=== PATIENT | female | born 1995 | race Caucasian/White ===

== ENCOUNTER → 2016-12-20 | Outpatient (REF) | payer OTHER ==
[2016-12-20 12:42] LABS: CHOLESTEROL LEVEL 132 MG/DL (<200); FREE T4 1.08 NG/DL (0.76-1.46); TRIGLYCERIDES LEVEL 102 MG/DL (<150)
[2016-12-21 08:43] LABS: THYROID PEROXIDASE ANTIBODY < 28.0 U/ML (<60.0)
== END ==
LOC: M LABDRAW1 11:28
PROVIDERS: ATTEND Physician Assistant Medical
DX: E04.2 Nontoxic multinodular goiter (principal); N97.9 Female infertility, unspecified; L68.0 Hirsutism

== ENCOUNTER → 2017-01-31 | Outpatient (REF) | payer OTHER ==
[2017-01-31 14:03] LABS: FREE T4 1.16 NG/DL (0.76-1.46); HCG, SERUM QUANTITATIVE < 1.0 MIU/ML
== END ==
LOC: M LABDRAW1 13:00
PROVIDERS: ATTEND Physician Assistant Medical
DX: E28.2 Polycystic ovarian syndrome (principal); R94.6 Abnormal results of thyroid function studies

== ENCOUNTER → 2017-07-19 | Outpatient (REF) | payer OTHER | LOC: M LABDRAW1 09:39 | PROVIDERS: ATTEND Internal Medicine Endocrinology, Diabetes & Metabolism | DX: L68.0 Hirsutism (principal) ==

== ENCOUNTER → 2017-07-19 | Outpatient (REF) | payer OTHER ==
[2017-07-19 11:17] LABS: BASO % 0.3 % (0.0-1.0); EOS # 0.1 K/mm3 (0.0-0.50); LARGE UNSTAINED CELL # 0.1 K/mm3 (0.0-0.4); LARGE UNSTAINED CELL % 1.3 % (0.0-4.0); LYMPH # 1.9 K/mm3 (1.5-6.5); LYMPH % 22.5 % (24.0-44.0); MEAN CORPUSCULAR HEMOGLOBIN 29.6 pg (27.0-33.0); MEAN CORPUSCULAR HGB CONC 35.1 g/dl (32.0-36.5); MEAN CORPUSCULAR VOLUME 84.2 fl (80.0-96.0); MONO # 0.4 K/mm3 (0.0-0.8); MONO % 4.2 % (0.0-5.0); NEUTROPHILS # 6.1 K/mm3 (1.8-7.7); NEUTROPHILS % 70.7 % (36.0-66.0); PLATELET COUNT, AUTOMATED 237 k/mm3 (150-450); RED CELL DISTRIBUTION WIDTH 12.9 % (11.5-14.5); WHITE BLOOD COUNT 8.6 K/mm3 (4.0-10.0)
[2017-07-19 11:26] LABS: ALBUMIN 3.7 GM/DL (3.2-5.2); ALBUMIN/GLOBULIN RATIO 1.03 (1.00-1.93); ALKALINE PHOSPHATASE 110 U/L (45-117); ALT/SGPT 21 U/L (12-78); ANION GAP 9 MEQ/L (8-16); AST/SGOT 12 U/L (15-37); BILIRUBIN,TOTAL 0.5 MG/DL (0.2-1.0); BLOOD UREA NITROGEN 11 MG/DL (7-18); CARBON DIOXIDE LEVEL 25 MEQ/L (21-32); CHLORIDE LEVEL 106 MEQ/L (98-107); CREATININE FOR GFR 0.63 MG/DL (0.55-1.02); GLOMERULAR FILTRATION RATE > 60.0 (>60); GLUCOSE, FASTING 89 MG/DL (70-105); SODIUM LEVEL 140 MEQ/L (136-145); TOTAL PROTEIN 7.3 GM/DL (6.4-8.2)
[2017-07-19 12:19] LABS: ERYTHROCYTE SEDIMENTATION RATE 39 mm/hr (0-20)
== END ==
LOC: M LABDRAW1 09:37
PROVIDERS: ATTEND Psychiatry & Neurology Neurology
DX: R51 Headache (principal); L68.0 Hirsutism

== ENCOUNTER 2017-08-08 23:21 | Emergency (ER) | payer OTHER ==
[~2017-08-08] VITALS: Ht 170.2 cm; Wt 109.5 kg
[2017-08-09] MEDS ORDERED: PERCOCET 5MG/325MG TAB PO ONE (01:00)
[2017-08-09 01:48] VITALS: BP 140/87
== END 2017-08-09 02:13 | disposition home or self-care (01) ==
LOC: M ED 23:21
DX: O99.89 Other specified diseases and conditions complicating pregnancy, childbirth and the puerperium (principal); G50.0 Trigeminal neuralgia; K25.9 Gastric ulcer, unspecified as acute or chronic, without hemorrhage or perforation; E28.2 Polycystic ovarian syndrome; Z91.018 Allergy to other foods

== ENCOUNTER 2017-12-25 20:10 | Outpatient (CLI) | payer OTHER | END 2017-12-25 21:55 | disposition home or self-care (01) | LOC: M LDO 20:10 | DX: O36.8130 Decreased fetal movements, third trimester, not applicable or unspecified (principal); Z3A.27 27 weeks gestation of pregnancy | CPT/HCPCS: 59025 ==

== ENCOUNTER 2018-02-15 15:30 | Outpatient (CLI) | payer OTHER | END 2018-02-15 18:40 | disposition home or self-care (01) | LOC: M LDO 15:30 | DX: O26.853 Spotting complicating pregnancy, third trimester (principal); O26.893 Other specified pregnancy related conditions, third trimester; R10.30 Lower abdominal pain, unspecified; Z3A.34 34 weeks gestation of pregnancy | CPT/HCPCS: 59025 ==

== ENCOUNTER 2018-04-02 09:33 | Inpatient (IN) | payer OTHER ==
[2018-04-02] MEDS: LR 1,000 ML IV ×2 (11:13→19:13)
[2018-04-02] MEDS: LACTATED RINGER'S 1000 ML IV (11:13)
[2018-04-02] MEDS ORDERED: LR 1,000 ML IV (11:13)
[2018-04-02] MEDS ORDERED: OXYTOCIN DRIP 30 UNITS in APPROPRIATE DILUENT 1 EA IV (11:15)
[2018-04-02 11:42] LABS: BEDSIDE GLUCOSE 79 MG/DL (70-105)
[2018-04-02 11:57] LABS: HEMATOCRIT 34.3 % (36.0-47.0); HEMOGLOBIN 11.7 g/dl (12.0-15.5); MEAN CORPUSCULAR HEMOGLOBIN 29.7 pg (27.0-33.0); MEAN CORPUSCULAR HGB CONC 34.1 g/dl (32.0-36.5); MEAN CORPUSCULAR VOLUME 87.1 fl (80.0-96.0); PLATELET COUNT, AUTOMATED 183 10^3/uL (150-450); RED BLOOD COUNT 3.94 10^6/uL (4.00-5.40); RED CELL DISTRIBUTION WIDTH 14.3 % (11.5-14.5)
[2018-04-02 12:15] LABS: BEDSIDE GLUCOSE CONFIRMATION 80 MG/DL (LESS THAN 200)
[2018-04-02] MEDS ORDERED: FENTANYL 2MCG/ML ROPIVACAINE 0.2% IN 0.9% NACL 200ML IVBAG As Ordered (20:01)
[2018-04-02] MEDS ORDERED: REFRIGERATOR IV KEYS XX (21:30)
[2018-04-02] MEDS ORDERED: FENTANYL/ROPIVACAINE/NACL BAG 200 ML EPIDURAL (21:30)
[2018-04-02] MEDS ORDERED: ONDANSETRON 4MG/2ML VIAL (J2405) IV (21:30)
[2018-04-02] MEDS ORDERED: ePHEDrine SULFATE 25 MG/5 ML(5MG/ML) SYRINGE IV (21:30)
[2018-04-02] MEDS ORDERED: EPIDURAL COMMENT XX (21:30)
[2018-04-02] MEDS ORDERED: EPIDURAL/PCA KEYS XX (21:30)
[2018-04-02] MEDS ORDERED: diphenhydrAMINE INJ 50MG/ML VIAL (J1200) IV (21:30)
[2018-04-02] MEDS ORDERED: LACTATED RINGER'S 1000 ML IV (21:30)
[2018-04-02] MEDS ORDERED: NALOXONE INJ 0.4 MG/1 ML VIAL (J2310) IV (21:30)
[2018-04-03] MEDS: LR 1,000 ML IV ×2 (03:13→11:13)
[2018-04-03] MEDS: PRENATAL VITAMINS CHEWABLE TABLET PO (09:00)
[2018-04-03 09:39] LABS: CORD GAS ABE V -7.1; CORD GAS HCO3 V 17.3 MEQ/L; CORD GAS O2 SAT V 60.7 %; CORD GAS PH V 7.338 UNITS; CORD GAS PO2 V 27.4 mmHg; CORD GAS SBC V 17.9 MEQ/L; CORD GAS TCO2 V 18.3 MEQ/L
[2018-04-03 09:40] LABS: CORD GAS ABE A -4.9; CORD GAS HCO3 A 23.4 MEQ/L; CORD GAS O2 SAT A 34.4 %; CORD GAS PCO2 A 55.9 mmHg; CORD GAS PO2 A 19.6 mmHg; CORD GAS SBC A 18.9 MEQ/L; CORD GAS TCO2 A 25.1 MEQ/L
[2018-04-03] MEDS ORDERED: ANUSOL HC CREAM 30GM TOP (09:45)
[2018-04-03] MEDS ORDERED: MOM 30ML SUSPENSION UDC PO (09:45)
[2018-04-03] MEDS ORDERED: METHYLERGONOVINE MALEATE 0.2 MG TAB PO (09:45)
[2018-04-03] MEDS ORDERED: DIBUCAINE 1% OINTMENT 30GM TOP (09:45)
[2018-04-03] MEDS: RHOGAM 300 MCG (1500 IU) INJ (J2790) IM (12:30)
[2018-04-03] MEDS: MEASLES,MUMPS,RUBELLA VACCINE INJ (MMR-II) (90707) SC (12:31)
[2018-04-03] MEDS: IBUPROFEN 800 MG TAB PO (13:28)
[2018-04-03] MEDS ORDERED: OXYTOCIN INJ 10 UNITS/ML VIAL (J2590) As Ordered (18:51)
[2018-04-03] MEDS: DOCUSATE SODIUM 100 MG CAP PO (20:32)
[2018-04-03] MEDS: ACETAMINOPHEN 500 MG TAB PO (20:32)
[2018-04-04] MEDS: IBUPROFEN 800 MG TAB PO (05:29)
[2018-04-04 07:04] LABS: HEMATOCRIT 31.3 % (36.0-47.0); HEMOGLOBIN 10.6 g/dl (12.0-15.5); MEAN CORPUSCULAR HEMOGLOBIN 29.5 pg (27.0-33.0); MEAN CORPUSCULAR HGB CONC 33.9 g/dl (32.0-36.5); MEAN CORPUSCULAR VOLUME 87.2 fl (80.0-96.0); PLATELET COUNT, AUTOMATED 170 10^3/uL (150-450); RED BLOOD COUNT 3.59 10^6/uL (4.00-5.40); RED CELL DISTRIBUTION WIDTH 14.6 % (11.5-14.5); WHITE BLOOD COUNT 13.8 10^3/uL (4.0-10.0)
[2018-04-04] MEDS: PRENATAL VITAMINS CHEWABLE TABLET PO (08:47)
[2018-04-04] MEDS: ACETAMINOPHEN 500 MG TAB PO (19:51)
[2018-04-05] MEDS: PRENATAL VITAMINS CHEWABLE TABLET PO (09:27)
[2018-04-05] MEDS: DOCUSATE SODIUM 100 MG CAP PO (10:46)
== END 2018-04-05 11:00 | disposition home or self-care (01) | DRG 775 ==
LOC: M LDI 09:33 → M OBS 04-03 13:08
PROVIDERS: Student in an Organized Health Care Education/Training Program
PROC: 3E033VJ Introduction of Other Hormone into Peripheral Vein, Percutaneous Approach (ICD-10-PCS; 2018-04-02)
PROC: 10E0XZZ Delivery of Products of Conception, External Approach (ICD-10-PCS; principal; 2018-04-03)
PROC: 0KQM0ZZ Repair Perineum Muscle, Open Approach (ICD-10-PCS; 2018-04-03)
PROC: 10907ZC Drainage of Amniotic Fluid, Therapeutic from Products of Conception, Via Natural or Artificial Opening (ICD-10-PCS; 2018-04-03)
DX: O48.0 Post-term pregnancy (principal); O24.420 Gestational diabetes mellitus in childbirth, diet controlled; Z3A.41 41 weeks gestation of pregnancy; O99.214 Obesity complicating childbirth; Z68.37 Body mass index [BMI] 37.0-37.9, adult; O70.1 Second degree perineal laceration during delivery; O36.63X0 Maternal care for excessive fetal growth, third trimester, not applicable or unspecified; Z37.0 Single live birth

== ENCOUNTER 2018-05-05 12:30 | Inpatient (IN) | payer OTHER ==
[2018-05-05] MEDS: MORPHINE 2 MG/ML 1ML SYRINGE (J2270) IV ×3 (12:47→14:16)
[2018-05-05] MEDS: NS 1,000 ML IV ×2 (12:50→13:57)
[2018-05-05] MEDS: ONDANSETRON 4MG/2ML VIAL (J2405) IV ×3 (12:52→23:23)
[2018-05-05 13:01] LABS: BASO % 0.2 % (0.0-1.0); EOS # 0.2 10^3/uL (0.0-0.50); EOS % 1.1 % (0.0-3.0); HEMATOCRIT 42.5 % (36.0-47.0); HEMOGLOBIN 13.9 g/dl (12.0-15.5); IMMATURE GRANULOCYTE % 0.5 % (0-3.0); LYMPH # 3.2 10^3/uL (1.5-6.5); MEAN CORPUSCULAR HEMOGLOBIN 28.7 pg (27.0-33.0); MEAN CORPUSCULAR HGB CONC 32.7 g/dl (32.0-36.5); MEAN CORPUSCULAR VOLUME 87.8 fl (80.0-96.0); MONO # 1.1 10^3/uL (0.0-0.8); NEUTROPHILS # 14.1 10^3/uL (1.8-7.7); NEUTROPHILS % 75.2 % (36.0-66.0); PLATELET COUNT, AUTOMATED 264 10^3/uL (150-450); RED BLOOD COUNT 4.84 10^6/uL (4.00-5.40); RED CELL DISTRIBUTION WIDTH 13.7 % (11.5-14.5); WHITE BLOOD COUNT 18.7 10^3/uL (4.0-10.0)
[2018-05-05 13:19] LABS: LACTIC ACID SEPSIS PROTOCOL 1.4 MMOL/L (0.4-2.0)
[2018-05-05 13:24] LABS: ALBUMIN 3.6 GM/DL (3.2-5.2); ALBUMIN/GLOBULIN RATIO 0.97 (1.00-1.93); ALKALINE PHOSPHATASE 373 U/L (45-117); ALT/SGPT 680 U/L (12-78); ANION GAP 10 MEQ/L (8-16); AST/SGOT 687 U/L (7-37); BILIRUBIN,DIRECT 2.9 MG/DL (0.0-0.2); BILIRUBIN,TOTAL 4.2 MG/DL (0.2-1.0); BLOOD UREA NITROGEN 15 MG/DL (7-18); CALCIUM LEVEL 8.9 MG/DL (8.5-10.1); CARBON DIOXIDE LEVEL 24 MEQ/L (21-32); CHLORIDE LEVEL 110 MEQ/L (98-107); CPK CREATINE PHOSPHOKINASE 43 U/L (26-192); CREATININE FOR GFR 0.88 MG/DL (0.55-1.30); GLOMERULAR FILTRATION RATE > 60.0 (>60); GLUCOSE, FASTING 148 MG/DL (70-100); POTASSIUM SERUM 3.7 MEQ/L (3.5-5.1); SODIUM LEVEL 144 MEQ/L (136-145); TOTAL PROTEIN 7.3 GM/DL (6.4-8.2); TROPONIN I < 0.02 NG/ML (< 0.10)
[2018-05-05 13:25] LABS: CK-MB VALUE MASS < 1.0 NG/ML (<3.6); MB/CK RELATIVE INDEX 2.32 (< OR =4)
[2018-05-05 13:38] LABS: AMYLASE 4850 U/L (25-115); LIPASE 116600 U/L (73-393)
[2018-05-05 13:46] LABS: CONTROL LINE HCG INT CTR LINE PRESENT; HCG, SERUM QUALITATIVE NEGATIVE (NEGATIVE)
[2018-05-05] MEDS ORDERED: ISOVUE-370 76% 100ML VIAL (Q9967) As Ordered (14:22)
[2018-05-05] MEDS: MORPHINE 4 MG/ML 1ML VIAL/SYRINGE (J2270) IV ×8 (15:18→22:07)
[2018-05-05] MEDS: PIPERACILLIN/TAZOBACTAM SOD 3.375 GM in D5W MINI-BAG PLUS 50 ML IV (15:21)
[2018-05-05] MEDS ORDERED: MORPHINE 4 MG/ML 1ML VIAL/SYRINGE (J2270) IV (15:30)
[2018-05-05] MEDS ORDERED: ONDANSETRON 4MG/2ML VIAL (J2405) IV (15:30)
[2018-05-05] MEDS: LR 1,000 ML IV ×3 (16:31→23:24)
[2018-05-05] MEDS: PANTOPRAZOLE 40MG INJ (PROTONIX) (C9113) IV (16:59)
[2018-05-05 20:15] LABS: HEMATOCRIT 44.2 % (36.0-47.0); HEMOGLOBIN 14.7 g/dl (12.0-15.5); MEAN CORPUSCULAR HEMOGLOBIN 28.6 pg (27.0-33.0); MEAN CORPUSCULAR HGB CONC 33.3 g/dl (32.0-36.5); PLATELET COUNT, AUTOMATED 210 10^3/uL (150-450); RED BLOOD COUNT 5.14 10^6/uL (4.00-5.40); RED CELL DISTRIBUTION WIDTH 13.7 % (11.5-14.5); WHITE BLOOD COUNT 11.4 10^3/uL (4.0-10.0)
[2018-05-05 20:42] LABS: ALBUMIN 3.4 GM/DL (3.2-5.2); ALBUMIN/GLOBULIN RATIO 0.94 (1.00-1.93); ALKALINE PHOSPHATASE 374 U/L (45-117); ALT/SGPT 623 U/L (12-78); AST/SGOT 483 U/L (7-37); BILIRUBIN,DIRECT 1.9 MG/DL (0.0-0.2); BILIRUBIN,TOTAL 3.4 MG/DL (0.2-1.0)
[2018-05-05] MEDS: METOCLOPRAMIDE INJ 10MG/2ML VIAL (J2765) IV (20:43)
[2018-05-05] MEDS: HEPARIN SOD (PORCINE) 5000 UNITS/ML VIAL SC (22:07)
[2018-05-05] MEDS: PIPERACILLIN/TAZOBACTAM SOD 4.5 GM in D5W MINI-BAG PLUS 50 ML IV (22:07)
[2018-05-05 23:14] LABS: ALBUMIN 3.3 GM/DL (3.2-5.2); ALBUMIN/GLOBULIN RATIO 0.92 (1.00-1.93); ALKALINE PHOSPHATASE 362 U/L (45-117); ALT/SGPT 592 U/L (12-78); ANION GAP 11 MEQ/L (8-16); AST/SGOT 393 U/L (7-37); BILIRUBIN,TOTAL 2.6 MG/DL (0.2-1.0); BLOOD UREA NITROGEN 12 MG/DL (7-18); CALCIUM LEVEL 8.3 MG/DL (8.5-10.1); CARBON DIOXIDE LEVEL 23 MEQ/L (21-32); CHLORIDE LEVEL 111 MEQ/L (98-107); CREATININE FOR GFR 0.89 MG/DL (0.55-1.30); GLOMERULAR FILTRATION RATE > 60.0 (>60); GLUCOSE, FASTING 143 MG/DL (70-100); POTASSIUM SERUM 4.2 MEQ/L (3.5-5.1); SODIUM LEVEL 145 MEQ/L (136-145); TOTAL PROTEIN 6.9 GM/DL (6.4-8.2)
[2018-05-06] MEDS: MORPHINE 4 MG/ML 1ML VIAL/SYRINGE (J2270) IV ×5 (01:05→12:06)
[2018-05-06] MEDS: LR 1,000 ML IV ×7 (03:13→22:24)
[2018-05-06] MEDS: PIPERACILLIN/TAZOBACTAM SOD 4.5 GM in D5W MINI-BAG PLUS 50 ML IV ×3 (04:15→15:28)
[2018-05-06 05:23] LABS: BASO % 0.1 % (0.0-1.0); HEMOGLOBIN 14.2 g/dl (12.0-15.5); IMMATURE GRANULOCYTE % 0.5 % (0-3.0); LYMPH # 1.2 10^3/uL (1.5-6.5); LYMPH % 7.9 % (24.0-44.0); MEAN CORPUSCULAR HEMOGLOBIN 28.5 pg (27.0-33.0); MEAN CORPUSCULAR VOLUME 86.2 fl (80.0-96.0); MONO # 1.1 10^3/uL (0.0-0.8); MONO % 7.3 % (0.0-5.0); NEUTROPHILS # 12.5 10^3/uL (1.8-7.7); NEUTROPHILS % 84.2 % (36.0-66.0); PLATELET COUNT, AUTOMATED 206 10^3/uL (150-450); RED BLOOD COUNT 4.99 10^6/uL (4.00-5.40); RED CELL DISTRIBUTION WIDTH 13.8 % (11.5-14.5); WHITE BLOOD COUNT 14.8 10^3/uL (4.0-10.0)
[2018-05-06 05:37] LABS: INR 1.16
[2018-05-06 05:38] LABS: PARTIAL THROMBOPLASTIN TIME 29.5 SECONDS (25.4-37.6)
[2018-05-06 05:52] LABS: ALBUMIN 3.1 GM/DL (3.2-5.2); ALBUMIN/GLOBULIN RATIO 0.91 (1.00-1.93); ALKALINE PHOSPHATASE 316 U/L (45-117); ALT/SGPT 459 U/L (12-78); AMYLASE 663 U/L (25-115); ANION GAP 10 MEQ/L (8-16); AST/SGOT 248 U/L (7-37); BILIRUBIN,TOTAL 2.3 MG/DL (0.2-1.0); BLOOD UREA NITROGEN 13 MG/DL (7-18); CALCIUM LEVEL 8.1 MG/DL (8.5-10.1); CARBON DIOXIDE LEVEL 24 MEQ/L (21-32); CHLORIDE LEVEL 110 MEQ/L (98-107); CREATININE FOR GFR 0.88 MG/DL (0.55-1.30); GLOMERULAR FILTRATION RATE > 60.0 (>60); GLUCOSE, FASTING 136 MG/DL (70-100); LIPASE 7436 U/L (73-393); POTASSIUM SERUM 3.9 MEQ/L (3.5-5.1); SODIUM LEVEL 144 MEQ/L (136-145); TOTAL PROTEIN 6.5 GM/DL (6.4-8.2)
[2018-05-06] MEDS: HEPARIN SOD (PORCINE) 5000 UNITS/ML VIAL SC ×3 (06:04→22:24)
[2018-05-06] MEDS: PROMETHAZINE INJ 25 MG/ML VIAL (J2550) IV (09:16)
[2018-05-06] MEDS: PANTOPRAZOLE 40MG INJ (PROTONIX) (C9113) IV (15:28)
[2018-05-06] MEDS ORDERED: PERCOCET 5MG/325MG TAB PO (16:30)
[2018-05-06] MEDS: PERCOCET 5MG/325MG TAB PO ×3 (16:37→21:32)
[2018-05-06 16:49] LABS: HEMATOCRIT 42.7 % (36.0-47.0); MEAN CORPUSCULAR HEMOGLOBIN 28.6 pg (27.0-33.0); MEAN CORPUSCULAR HGB CONC 32.8 g/dl (32.0-36.5); MEAN CORPUSCULAR VOLUME 87.1 fl (80.0-96.0); PLATELET COUNT, AUTOMATED 180 10^3/uL (150-450); RED CELL DISTRIBUTION WIDTH 13.9 % (11.5-14.5); WHITE BLOOD COUNT 17.2 10^3/uL (4.0-10.0)
[2018-05-06 17:00] LABS: ALBUMIN 2.8 GM/DL (3.2-5.2); ALBUMIN/GLOBULIN RATIO 0.82 (1.00-1.93); ALKALINE PHOSPHATASE 264 U/L (45-117); ALT/SGPT 323 U/L (12-78); AST/SGOT 132 U/L (7-37); BILIRUBIN,DIRECT 0.8 MG/DL (0.0-0.2); BILIRUBIN,TOTAL 2.5 MG/DL (0.2-1.0); TOTAL PROTEIN 6.2 GM/DL (6.4-8.2)
[2018-05-06] MEDS ORDERED: MEROPENEM INJ 2 GM in NS 100 ML IV (18:45)
[2018-05-06] MEDS: LACTATED RINGER'S 1000 ML IV (19:52)
[2018-05-06] MEDS: MEROPENEM INJ 1 GM in APPROPRIATE DILUENT 1 EA IV ×2 (20:41→21:29)
[2018-05-07] MEDS: PERCOCET 5MG/325MG TAB PO ×2 (02:43→09:59)
[2018-05-07] MEDS: MEROPENEM INJ 1 GM in APPROPRIATE DILUENT 1 EA IV ×6 (04:22→21:31)
[2018-05-07] MEDS: LR 1,000 ML IV (05:11)
[2018-05-07] MEDS: MORPHINE 4 MG/ML 1ML VIAL/SYRINGE (J2270) IV ×4 (05:12→10:53)
[2018-05-07 07:07] LABS: BASO % 0.2 % (0.0-1.0); EOS % 0.1 % (0.0-3.0); HEMATOCRIT 38.9 % (36.0-47.0); HEMOGLOBIN 12.9 g/dl (12.0-15.5); IMMATURE GRANULOCYTE % 0.7 % (0-3.0); LYMPH # 1.5 10^3/uL (1.5-6.5); LYMPH % 7.6 % (24.0-44.0); MEAN CORPUSCULAR HEMOGLOBIN 28.7 pg (27.0-33.0); MEAN CORPUSCULAR HGB CONC 33.2 g/dl (32.0-36.5); MEAN CORPUSCULAR VOLUME 86.4 fl (80.0-96.0); MONO # 1.1 10^3/uL (0.0-0.8); MONO % 5.9 % (0.0-5.0); NEUTROPHILS # 16.4 10^3/uL (1.8-7.7); NEUTROPHILS % 85.5 % (36.0-66.0); PLATELET COUNT, AUTOMATED 156 10^3/uL (150-450); RED CELL DISTRIBUTION WIDTH 13.9 % (11.5-14.5); WHITE BLOOD COUNT 19.1 10^3/uL (4.0-10.0)
[2018-05-07 07:27] LABS: ALBUMIN 2.4 GM/DL (3.2-5.2); ALBUMIN/GLOBULIN RATIO 0.73 (1.00-1.93); ALKALINE PHOSPHATASE 196 U/L (45-117); ALT/SGPT 214 U/L (12-78); ANION GAP 8 MEQ/L (8-16); AST/SGOT 74 U/L (7-37); BILIRUBIN,DIRECT 0.6 MG/DL (0.0-0.2); BILIRUBIN,TOTAL 1.8 MG/DL (0.2-1.0); BLOOD UREA NITROGEN 9 MG/DL (7-18); CALCIUM LEVEL 7.7 MG/DL (8.5-10.1); CARBON DIOXIDE LEVEL 27 MEQ/L (21-32); CHLORIDE LEVEL 104 MEQ/L (98-107); CREATININE FOR GFR 0.67 MG/DL (0.55-1.30); GLOMERULAR FILTRATION RATE > 60.0 (>60); GLUCOSE, FASTING 116 MG/DL (70-100); POTASSIUM SERUM 3.6 MEQ/L (3.5-5.1); SODIUM LEVEL 139 MEQ/L (136-145); TOTAL PROTEIN 5.7 GM/DL (6.4-8.2)
[2018-05-07] MEDS: HEPARIN SOD (PORCINE) 5000 UNITS/ML VIAL SC ×3 (07:32→21:00)
[2018-05-07 08:38] LABS: LIPASE 3643 U/L (73-393)
[2018-05-07] MEDS: PROMETHAZINE INJ 25 MG/ML VIAL (J2550) IV (08:53)
[2018-05-07] MEDS ORDERED: ISOVUE-370 76% 100ML VIAL (Q9967) As Ordered (09:14)
[2018-05-07] MEDS: NS 1,000 ML IV ×3 (09:55→19:24)
[2018-05-07] MEDS ORDERED: NS 1,000 ML IV (10:14)
[2018-05-07] MEDS ORDERED: NALOXONE INJ 0.4 MG/1 ML VIAL (J2310) IV (10:15)
[2018-05-07] MEDS ORDERED: diphenhydrAMINE INJ 50MG/ML VIAL (J1200) IV (10:15)
[2018-05-07] MEDS ORDERED: NALBUPHINE HCL 10 MG/ML AMP (J2300) IV (10:15)
[2018-05-07] MEDS ORDERED: EPIDURAL/PCA KEYS XX (10:15)
[2018-05-07 10:50] LABS: HEPATITIS B SURFACE ANTIBODY NEGATIVE (POSITIVE)
[2018-05-07 10:54] LABS: HEPATITIS B SURFACE ANTIGEN NEGATIVE (NEGATIVE)
[2018-05-07] MEDS: ONDANSETRON 4MG/2ML VIAL (J2405) IV (11:11)
[2018-05-07] MEDS: MORPHINE 1MG/ML IN 0.9% NACL 100ML IV BAG IV (11:12)
[2018-05-07] MEDS: ACETAMINOPHEN TAB 650MG DOSE (2X325MG) PO ×2 (11:12→20:59)
[2018-05-07 11:20] LABS: HEPATITIS C VIRUS ABY INDEX 0.1 INDEX (<0.8)
[2018-05-07 11:21] LABS: HEPATITIS B CORE ANTIBODY IGM NEGATIVE (NEGATIVE)
[2018-05-07 11:22] LABS: HEPATITIS A ANTIBODY IGM NEGATIVE (NEGATIVE)
[2018-05-07] MEDS ORDERED: LIDOCAINE 1% MDV 20ML VIAL As Ordered (13:46)
[2018-05-07] MEDS: PANTOPRAZOLE 40MG INJ (PROTONIX) (C9113) IV (16:26)
[2018-05-08] MEDS: NS 1,000 ML IV ×8 (00:15→23:30)
[2018-05-08] MEDS: MEROPENEM INJ 1 GM in APPROPRIATE DILUENT 1 EA IV ×6 (03:46→21:07)
[2018-05-08] MEDS: ACETAMINOPHEN TAB 650MG DOSE (2X325MG) PO ×3 (03:47→23:33)
[2018-05-08 05:20] LABS: BASO % 0.2 % (0.0-1.0); EOS % 0.3 % (0.0-3.0); HEMATOCRIT 34.4 % (36.0-47.0); HEMOGLOBIN 11.4 g/dl (12.0-15.5); LYMPH # 1.3 10^3/uL (1.5-6.5); LYMPH % 8.5 % (24.0-44.0); MEAN CORPUSCULAR HEMOGLOBIN 29.2 pg (27.0-33.0); MEAN CORPUSCULAR HGB CONC 33.1 g/dl (32.0-36.5); MONO # 1.2 10^3/uL (0.0-0.8); MONO % 7.4 % (0.0-5.0); NEUTROPHILS # 12.9 10^3/uL (1.8-7.7); NEUTROPHILS % 82.6 % (36.0-66.0); PLATELET COUNT, AUTOMATED 130 10^3/uL (150-450); RED BLOOD COUNT 3.91 10^6/uL (4.00-5.40); RED CELL DISTRIBUTION WIDTH 14.1 % (11.5-14.5); WHITE BLOOD COUNT 15.6 10^3/uL (4.0-10.0)
[2018-05-08 05:41] LABS: ALBUMIN/GLOBULIN RATIO 0.61 (1.00-1.93); ALKALINE PHOSPHATASE 131 U/L (45-117); ALT/SGPT 120 U/L (12-78); ANION GAP 7 MEQ/L (8-16); AST/SGOT 41 U/L (7-37); BILIRUBIN,DIRECT 0.3 MG/DL (0.0-0.2); BILIRUBIN,TOTAL 0.9 MG/DL (0.2-1.0); BLOOD UREA NITROGEN 6 MG/DL (7-18); CALCIUM LEVEL 7.4 MG/DL (8.5-10.1); CARBON DIOXIDE LEVEL 26 MEQ/L (21-32); CHLORIDE LEVEL 105 MEQ/L (98-107); CREATININE FOR GFR 0.48 MG/DL (0.55-1.30); GLOMERULAR FILTRATION RATE > 60.0 (>60); GLUCOSE, FASTING 77 MG/DL (70-100); POTASSIUM SERUM 3.6 MEQ/L (3.5-5.1); SODIUM LEVEL 138 MEQ/L (136-145); TOTAL PROTEIN 5.3 GM/DL (6.4-8.2)
[2018-05-08] MEDS: HEPARIN SOD (PORCINE) 5000 UNITS/ML VIAL SC ×3 (06:40→21:07)
[2018-05-08] MEDS: PANTOPRAZOLE 40MG INJ (PROTONIX) (C9113) IV (16:06)
[2018-05-09] MEDS: MEROPENEM INJ 1 GM in APPROPRIATE DILUENT 1 EA IV ×6 (03:53→21:01)
[2018-05-09] MEDS: NS 1,000 ML IV ×5 (04:45→21:02)
[2018-05-09] MEDS: HEPARIN SOD (PORCINE) 5000 UNITS/ML VIAL SC ×3 (06:08→21:02)
[2018-05-09] MEDS: MORPHINE 1MG/ML IN 0.9% NACL 100ML IV BAG IV (06:24)
[2018-05-09 07:37] LABS: BASO % 0.3 % (0.0-1.0); EOS # 0.1 10^3/uL (0.0-0.50); HEMATOCRIT 31.4 % (36.0-47.0); HEMOGLOBIN 10.1 g/dl (12.0-15.5); IMMATURE GRANULOCYTE % 0.8 % (0-3.0); LYMPH # 1.1 10^3/uL (1.5-6.5); LYMPH % 8.5 % (24.0-44.0); MEAN CORPUSCULAR HEMOGLOBIN 28.5 pg (27.0-33.0); MEAN CORPUSCULAR HGB CONC 32.2 g/dl (32.0-36.5); MEAN CORPUSCULAR VOLUME 88.7 fl (80.0-96.0); MONO # 1.2 10^3/uL (0.0-0.8); MONO % 8.9 % (0.0-5.0); NEUTROPHILS # 10.6 10^3/uL (1.8-7.7); NEUTROPHILS % 80.5 % (36.0-66.0); PLATELET COUNT, AUTOMATED 141 10^3/uL (150-450); RED BLOOD COUNT 3.54 10^6/uL (4.00-5.40); RED CELL DISTRIBUTION WIDTH 13.8 % (11.5-14.5); WHITE BLOOD COUNT 13.2 10^3/uL (4.0-10.0)
[2018-05-09 07:43] LABS: ALBUMIN 1.8 GM/DL (3.2-5.2); ALBUMIN/GLOBULIN RATIO 0.53 (1.00-1.93); ALKALINE PHOSPHATASE 109 U/L (45-117); ALT/SGPT 86 U/L (12-78); ANION GAP 10 MEQ/L (8-16); AST/SGOT 34 U/L (7-37); BILIRUBIN,TOTAL 0.6 MG/DL (0.2-1.0); BLOOD UREA NITROGEN 4 MG/DL (7-18); CALCIUM LEVEL 7.7 MG/DL (8.5-10.1); CARBON DIOXIDE LEVEL 21 MEQ/L (21-32); CHLORIDE LEVEL 105 MEQ/L (98-107); CREATININE FOR GFR 0.31 MG/DL (0.55-1.30); GLOMERULAR FILTRATION RATE > 60.0 (>60); GLUCOSE, FASTING 73 MG/DL (70-100); POTASSIUM SERUM 3.5 MEQ/L (3.5-5.1); SODIUM LEVEL 136 MEQ/L (136-145); TOTAL PROTEIN 5.2 GM/DL (6.4-8.2)
[2018-05-09] MEDS: PANTOPRAZOLE 40MG INJ (PROTONIX) (C9113) IV (14:51)
[2018-05-09 17:55] LABS: BEDSIDE GLUCOSE 70 MG/DL (70-105)
[2018-05-09] MEDS: HumaLOG INSULIN (NovoLOG) PER UNIT SC (17:56)
[2018-05-09] MEDS: ACETAMINOPHEN TAB 650MG DOSE (2X325MG) PO (18:13)
[2018-05-09] MEDS: MULTIVITAMIN -ADULT INJECTION 10 ML, CR/CU/SE/MN/ZN INJ 1 ML in AMINO AC/ELECTROLYTE/DE... IV (18:14)
[2018-05-09] MEDS: FAT EMULSION IV 20% 500 ML IV (18:14)
[2018-05-10 00:12] LABS: BEDSIDE GLUCOSE 107 MG/DL (70-105)
[2018-05-10] MEDS: NS 1,000 ML IV ×3 (02:21→12:08)
[2018-05-10] MEDS: ACETAMINOPHEN TAB 650MG DOSE (2X325MG) PO ×3 (03:45→18:23)
[2018-05-10] MEDS: MEROPENEM INJ 1 GM in APPROPRIATE DILUENT 1 EA IV ×6 (03:46→21:04)
[2018-05-10 04:55] LABS: TROPONIN I < 0.02 NG/ML (< 0.10)
[2018-05-10 05:59] LABS: BEDSIDE GLUCOSE 144 MG/DL (70-105)
[2018-05-10] MEDS: HEPARIN SOD (PORCINE) 5000 UNITS/ML VIAL SC ×3 (06:00→21:04)
[2018-05-10] MEDS: HumaLOG INSULIN (NovoLOG) PER UNIT SC ×4 (06:05→18:03)
[2018-05-10] MEDS: SODIUM CHLORIDE 0.9% INJ 10 ML SYR IV ×2 (06:06→18:00)
[2018-05-10 08:31] LABS: HEMATOCRIT 29.3 % (36.0-47.0); HEMOGLOBIN 9.6 g/dl (12.0-15.5); MEAN CORPUSCULAR HEMOGLOBIN 28.6 pg (27.0-33.0); MEAN CORPUSCULAR HGB CONC 32.8 g/dl (32.0-36.5); MEAN CORPUSCULAR VOLUME 87.2 fl (80.0-96.0); PLATELET COUNT, AUTOMATED 166 10^3/uL (150-450); RED BLOOD COUNT 3.36 10^6/uL (4.00-5.40); RED CELL DISTRIBUTION WIDTH 13.8 % (11.5-14.5); WHITE BLOOD COUNT 13.9 10^3/uL (4.0-10.0)
[2018-05-10 09:01] LABS: ALBUMIN 1.7 GM/DL (3.2-5.2); ALBUMIN/GLOBULIN RATIO 0.46 (1.00-1.93); ALKALINE PHOSPHATASE 107 U/L (45-117); ALT/SGPT 77 U/L (12-78); ANION GAP 9 MEQ/L (8-16); AST/SGOT 45 U/L (7-37); BILIRUBIN,TOTAL 0.3 MG/DL (0.2-1.0); BLOOD UREA NITROGEN 4 MG/DL (7-18); CALCIUM LEVEL 7.6 MG/DL (8.5-10.1); CARBON DIOXIDE LEVEL 26 MEQ/L (21-32); CHLORIDE LEVEL 103 MEQ/L (98-107); CREATININE FOR GFR 0.34 MG/DL (0.55-1.30); GLOMERULAR FILTRATION RATE > 60.0 (>60); GLUCOSE, FASTING 124 MG/DL (70-100); POTASSIUM SERUM 3.3 MEQ/L (3.5-5.1); SODIUM LEVEL 138 MEQ/L (136-145); TOTAL PROTEIN 5.4 GM/DL (6.4-8.2)
[2018-05-10 09:23] LABS: TROPONIN I < 0.02 NG/ML (< 0.10)
[2018-05-10 11:48] LABS: BEDSIDE GLUCOSE 166 MG/DL (70-105)
[2018-05-10] MEDS: POTASSIUM CHLORIDE 10 MEQ SR TABLET PO (12:11)
[2018-05-10] MEDS: MORPHINE 1MG/ML IN 0.9% NACL 100ML IV BAG IV (12:12)
[2018-05-10] MEDS: PANTOPRAZOLE 40MG INJ (PROTONIX) (C9113) IV (16:31)
[2018-05-10 17:18] LABS: BEDSIDE GLUCOSE 125 MG/DL (70-105)
[2018-05-10] MEDS: LR 1,000 ML IV (18:02)
[2018-05-10] MEDS: FAT EMULSION IV 20% 500 ML IV (18:03)
[2018-05-10] MEDS: AMINO AC/ELECTROLYTE/DEX/CALC 2,000 ML IV (18:04)
[2018-05-10] MEDS: PROMETHAZINE INJ 25 MG/ML VIAL (J2550) IV (18:44)
[2018-05-11 00:13] LABS: BEDSIDE GLUCOSE 164 MG/DL (70-105)
[2018-05-11] MEDS: HumaLOG INSULIN (NovoLOG) PER UNIT SC ×3 (00:17→12:49)
[2018-05-11] MEDS: LR 1,000 ML IV (04:03)
[2018-05-11] MEDS: MEROPENEM INJ 1 GM in APPROPRIATE DILUENT 1 EA IV ×6 (04:03→20:19)
[2018-05-11] MEDS: SODIUM CHLORIDE 0.9% INJ 10 ML SYR IV ×2 (05:39→18:29)
[2018-05-11] MEDS: HEPARIN SOD (PORCINE) 5000 UNITS/ML VIAL SC ×3 (05:39→22:09)
[2018-05-11 05:59] LABS: BEDSIDE GLUCOSE 156 MG/DL (70-105)
[2018-05-11 06:02] LABS: BASO # 0.1 10^3/uL (0.0-0.2); BASO % 0.4 % (0.0-1.0); EOS # 0.2 10^3/uL (0.0-0.50); EOS % 1.2 % (0.0-3.0); HEMATOCRIT 28.9 % (36.0-47.0); HEMOGLOBIN 9.5 g/dl (12.0-15.5); IMMATURE GRANULOCYTE % 4.5 % (0-3.0); LYMPH # 1.5 10^3/uL (1.5-6.5); LYMPH % 11.3 % (24.0-44.0); MEAN CORPUSCULAR HEMOGLOBIN 28.7 pg (27.0-33.0); MEAN CORPUSCULAR HGB CONC 32.9 g/dl (32.0-36.5); MEAN CORPUSCULAR VOLUME 87.3 fl (80.0-96.0); NEUTROPHILS # 9.6 10^3/uL (1.8-7.7); NEUTROPHILS % 74.6 % (36.0-66.0); PLATELET COUNT, AUTOMATED 178 10^3/uL (150-450); RED BLOOD COUNT 3.31 10^6/uL (4.00-5.40); RED CELL DISTRIBUTION WIDTH 13.9 % (11.5-14.5); WHITE BLOOD COUNT 12.9 10^3/uL (4.0-10.0)
[2018-05-11 06:21] LABS: ALBUMIN 1.6 GM/DL (3.2-5.2); ALKALINE PHOSPHATASE 150 U/L (45-117); ALT/SGPT 86 U/L (12-78); ANION GAP 5 MEQ/L (8-16); AST/SGOT 70 U/L (7-37); BILIRUBIN,TOTAL 0.4 MG/DL (0.2-1.0); BLOOD UREA NITROGEN 4 MG/DL (7-18); CALCIUM LEVEL 7.5 MG/DL (8.5-10.1); CARBON DIOXIDE LEVEL 30 MEQ/L (21-32); CHLORIDE LEVEL 105 MEQ/L (98-107); CREATININE FOR GFR 0.36 MG/DL (0.55-1.30); GLOMERULAR FILTRATION RATE > 60.0 (>60); GLUCOSE, FASTING 149 MG/DL (70-100); POTASSIUM SERUM 3.2 MEQ/L (3.5-5.1); SODIUM LEVEL 140 MEQ/L (136-145); TOTAL PROTEIN 5.6 GM/DL (6.4-8.2)
[2018-05-11] MEDS: PROMETHAZINE INJ 25 MG/ML VIAL (J2550) IV (09:10)
[2018-05-11] MEDS: PANTOPRAZOLE 40MG TAB (PROTONIX) PO (11:42)
[2018-05-11] MEDS: POTASSIUM CHLORIDE 10 MEQ SR TABLET PO (11:42)
[2018-05-11 12:15] LABS: BEDSIDE GLUCOSE 171 MG/DL (70-105)
[2018-05-11 13:02] LABS: AMORPHOUS SEDIMENT SMALL (NEGATIVE); APPEARANCE, URINE CLEAR (CLEAR); BACTERIA, URINE AUTO NEGATIVE (NEGATIVE); BILIRUBIN, URINE AUTO NEGATIVE (NEGATIVE); BLOOD, URINE BLOOD 1+ (NEGATIVE); COLOR, URINE STRAW (YELLOW); GLUCOSE, URINE (UA) AUTO NEGATIVE (NEGATIVE); KETONE, URINE AUTO NEGATIVE (NEGATIVE); LEUKOCYTE ESTERASE, URINE AUTO NEGATIVE (NEGATIVE); NITRITE, URINE AUTO NEGATIVE (NEGATIVE); PROTEIN, URINE AUTO 2+ mg/dL (NEGATIVE); RBC, URINE AUTO 24 /HPF (0-3); SPECIFIC GRAVITY URINE AUTO 1.004 (1.002-1.035); SQUAMOUS EPITHELIAL CELL UR AU 0 /HPF (0-6); UROBILINOGEN, URINE AUTO 0.2 mg/dL (0.0-2.0); WBC, URINE AUTO 7 /HPF (0-3)
[2018-05-11] MEDS ORDERED: MULTIVITAMIN -ADULT INJECTION 10 ML, CR/CU/SE/MN/ZN INJ 1 ML in AMINO AC/ELECTROLYTE/DE... IV (18:00)
[2018-05-11] MEDS ORDERED: FAT EMULSION IV 20% 500 ML IV (18:00)
[2018-05-11] MEDS ORDERED: HumaLOG INSULIN (NovoLOG) PER UNIT SC (18:00)
[2018-05-11] MEDS: ACETAMINOPHEN TAB 650MG DOSE (2X325MG) PO (18:29)
[2018-05-12 00:14] LABS: ANTI-MITOCHONDRIAL ANTIBODY 1.9 Units (0.0-20.0); CERULOPLASMIN 30.5 mg/dL (19.0-39.0); HEPATITIS A IgG TOTAL Negative (Negative); HEPATITIS E IgM ANTIBODY Negative (Negative); LIVER-KIDNEY MICROSOMAL ABY 1.1 Units (0.0-20.0)
[2018-05-12 00:14] LABS: ANTI-SMOOTH MUSCLE ANTIBODY 4 Units (0-19)
[2018-05-12] MEDS: MEROPENEM INJ 1 GM in APPROPRIATE DILUENT 1 EA IV ×6 (04:19→20:42)
[2018-05-12] MEDS: HEPARIN SOD (PORCINE) 5000 UNITS/ML VIAL SC ×3 (05:43→22:16)
[2018-05-12] MEDS: SODIUM CHLORIDE 0.9% INJ 10 ML SYR IV ×2 (05:43→17:14)
[2018-05-12 05:59] LABS: HEMATOCRIT 28.5 % (36.0-47.0); HEMOGLOBIN 9.4 g/dl (12.0-15.5); MEAN CORPUSCULAR HEMOGLOBIN 28.7 pg (27.0-33.0); MEAN CORPUSCULAR VOLUME 86.9 fl (80.0-96.0); PLATELET COUNT, AUTOMATED 215 10^3/uL (150-450); RED BLOOD COUNT 3.28 10^6/uL (4.00-5.40); RED CELL DISTRIBUTION WIDTH 14.2 % (11.5-14.5); WHITE BLOOD COUNT 14.7 10^3/uL (4.0-10.0)
[2018-05-12 06:06] LABS: ADD MANUAL DIFFER YES; DIFF SLIDE NUMBER 46; POS COUNT POS FLAG; POSITIVE MORPH POS FLAG
[2018-05-12 06:49] LABS: ALBUMIN 1.7 GM/DL (3.2-5.2); ALKALINE PHOSPHATASE 180 U/L (45-117); ALT/SGPT 111 U/L (12-78); ANION GAP 6 MEQ/L (8-16); AST/SGOT 96 U/L (7-37); BILIRUBIN,TOTAL 0.5 MG/DL (0.2-1.0); BLOOD UREA NITROGEN 4 MG/DL (7-18); CALCIUM LEVEL 7.5 MG/DL (8.5-10.1); CARBON DIOXIDE LEVEL 30 MEQ/L (21-32); CHLORIDE LEVEL 104 MEQ/L (98-107); CREATININE FOR GFR 0.37 MG/DL (0.55-1.30); GLOMERULAR FILTRATION RATE > 60.0 (>60); GLUCOSE, FASTING 105 MG/DL (70-100); MAGNESIUM LEVEL 1.9 MG/DL (1.8-2.4); POTASSIUM SERUM 3.7 MEQ/L (3.5-5.1); SODIUM LEVEL 140 MEQ/L (136-145); TOTAL PROTEIN 5.1 GM/DL (6.4-8.2)
[2018-05-12 06:56] LABS: BANDS 1 % (< 11); EOSINOPHILS 1 % (0-5); LYMPHOCYTES 18 % (16-52); MONOCYTES 9 % (0-8); MYELOCYTES 2 % (0-0); NEUTROPHILS 69 % (35-75)
[2018-05-12 06:57] LABS: PLATELET ESTIMATE NORMAL (NORMAL); TOXIC GRANULATION 1+
[2018-05-12] MEDS: PANTOPRAZOLE 40MG TAB (PROTONIX) PO (10:11)
[2018-05-12] MEDS: ACETAMINOPHEN TAB 650MG DOSE (2X325MG) PO ×2 (11:50→20:03)
[2018-05-12] MEDS: MORPHINE 1MG/ML IN 0.9% NACL 100ML IV BAG IV (13:48)
[2018-05-12] MEDS ORDERED: AMINO AC/ELECTROLYTE/DEX/CALC 1,000 ML IV (14:15)
[2018-05-13] MEDS: MEROPENEM INJ 1 GM in APPROPRIATE DILUENT 1 EA IV ×6 (04:20→21:06)
[2018-05-13] MEDS: HEPARIN SOD (PORCINE) 5000 UNITS/ML VIAL SC ×3 (05:16→21:07)
[2018-05-13 05:31] LABS: HEMATOCRIT 27.3 % (36.0-47.0); HEMOGLOBIN 8.7 g/dl (12.0-15.5); MEAN CORPUSCULAR HEMOGLOBIN 27.8 pg (27.0-33.0); MEAN CORPUSCULAR HGB CONC 31.9 g/dl (32.0-36.5); MEAN CORPUSCULAR VOLUME 87.2 fl (80.0-96.0); PLATELET COUNT, AUTOMATED 253 10^3/uL (150-450); POSITIVE MORPH POS FLAG; RED BLOOD COUNT 3.13 10^6/uL (4.00-5.40); RED CELL DISTRIBUTION WIDTH 14.3 % (11.5-14.5); WHITE BLOOD COUNT 14.2 10^3/uL (4.0-10.0)
[2018-05-13 05:32] LABS: ADD MANUAL DIFFER YES; DIFF SLIDE NUMBER 37; POS COUNT POS FLAG
[2018-05-13 05:56] LABS: ALBUMIN 1.7 GM/DL (3.2-5.2); ALBUMIN/GLOBULIN RATIO 0.49 (1.00-1.93); ALKALINE PHOSPHATASE 181 U/L (45-117); ALT/SGPT 110 U/L (12-78); ANION GAP 6 MEQ/L (8-16); AST/SGOT 86 U/L (7-37); BILIRUBIN,TOTAL 0.6 MG/DL (0.2-1.0); BLOOD UREA NITROGEN 4 MG/DL (7-18); CALCIUM LEVEL 7.7 MG/DL (8.5-10.1); CARBON DIOXIDE LEVEL 32 MEQ/L (21-32); CHLORIDE LEVEL 104 MEQ/L (98-107); CREATININE FOR GFR 0.29 MG/DL (0.55-1.30); GLOMERULAR FILTRATION RATE > 60.0 (>60); GLUCOSE, FASTING 91 MG/DL (70-100); MAGNESIUM LEVEL 2.1 MG/DL (1.8-2.4); POTASSIUM SERUM 3.9 MEQ/L (3.5-5.1); SODIUM LEVEL 142 MEQ/L (136-145); TOTAL PROTEIN 5.2 GM/DL (6.4-8.2)
[2018-05-13] MEDS: SODIUM CHLORIDE 0.9% INJ 10 ML SYR IV ×2 (05:57→18:19)
[2018-05-13] MEDS: ONDANSETRON 4MG/2ML VIAL (J2405) IV (06:29)
[2018-05-13 06:39] LABS: ATYPICAL LYMPH 2 % (0-5); BANDS 3 % (< 11); EOSINOPHILS 2 % (0-5); LYMPHOCYTES 11 % (16-52); MONOCYTES 2 % (0-8); NEUTROPHILS 80 % (35-75)
[2018-05-13 06:43] LABS: ANISOCYTOSIS 1+; PLATELET ESTIMATE NORMAL (NORMAL); TOXIC GRANULATION 1+
[2018-05-13] MEDS: PANTOPRAZOLE 40MG TAB (PROTONIX) PO (08:21)
[2018-05-13] MEDS: NS 1,000 ML IV (08:38)
[2018-05-13] MEDS: ACETAMINOPHEN TAB 650MG DOSE (2X325MG) PO ×2 (08:38→16:55)
[2018-05-13] MEDS ORDERED: ISOVUE-370 76% 100ML VIAL (Q9967) As Ordered (09:19)
[2018-05-14] MEDS: ACETAMINOPHEN TAB 650MG DOSE (2X325MG) PO (00:02)
[2018-05-14] MEDS: MEROPENEM INJ 1 GM in APPROPRIATE DILUENT 1 EA IV ×6 (04:26→20:28)
[2018-05-14] MEDS: HEPARIN SOD (PORCINE) 5000 UNITS/ML VIAL SC ×3 (06:01→21:50)
[2018-05-14] MEDS: SODIUM CHLORIDE 0.9% INJ 10 ML SYR IV ×2 (06:02→17:04)
[2018-05-14 06:33] LABS: HEMATOCRIT 26.4 % (36.0-47.0); HEMOGLOBIN 8.6 g/dl (12.0-15.5); MEAN CORPUSCULAR HEMOGLOBIN 28.1 pg (27.0-33.0); MEAN CORPUSCULAR HGB CONC 32.6 g/dl (32.0-36.5); MEAN CORPUSCULAR VOLUME 86.3 fl (80.0-96.0); PLATELET COUNT, AUTOMATED 299 10^3/uL (150-450); RED BLOOD COUNT 3.06 10^6/uL (4.00-5.40); RED CELL DISTRIBUTION WIDTH 14.1 % (11.5-14.5); WHITE BLOOD COUNT 16.4 10^3/uL (4.0-10.0)
[2018-05-14 06:37] LABS: ADD MANUAL DIFFER YES; DIFF SLIDE NUMBER 24; POSITIVE MORPH POS FLAG
[2018-05-14 06:56] LABS: ALBUMIN 1.9 GM/DL (3.2-5.2); ALBUMIN/GLOBULIN RATIO 0.51 (1.00-1.93); ALKALINE PHOSPHATASE 182 U/L (45-117); ALT/SGPT 97 U/L (12-78); ANION GAP 7 MEQ/L (8-16); AST/SGOT 68 U/L (7-37); BILIRUBIN,TOTAL 0.6 MG/DL (0.2-1.0); BLOOD UREA NITROGEN 5 MG/DL (7-18); CALCIUM LEVEL 7.8 MG/DL (8.5-10.1); CARBON DIOXIDE LEVEL 32 MEQ/L (21-32); CHLORIDE LEVEL 101 MEQ/L (98-107); CREATININE FOR GFR 0.37 MG/DL (0.55-1.30); GLOMERULAR FILTRATION RATE > 60.0 (>60); GLUCOSE, FASTING 84 MG/DL (70-100); MAGNESIUM LEVEL 2.2 MG/DL (1.8-2.4); SODIUM LEVEL 140 MEQ/L (136-145); TOTAL PROTEIN 5.6 GM/DL (6.4-8.2)
[2018-05-14 07:12] LABS: ANISOCYTOSIS 1+; ATYPICAL LYMPH 1 % (0-5); BANDS 2 % (< 11); EOSINOPHILS 1 % (0-5); LYMPHOCYTES 12 % (16-52); MONOCYTES 4 % (0-8); NEUTROPHILS 80 % (35-75); PLATELET ESTIMATE NORMAL (NORMAL)
[2018-05-14] MEDS: PANTOPRAZOLE 40MG TAB (PROTONIX) PO (09:05)
[2018-05-14] MEDS: KETOROLAC 30 MG/ML VIAL (J1885) IV ×3 (10:08→20:28)
[2018-05-14] MEDS: NORCO, ANEXSIA 5/325MG TABLET (HYDROcodone/ACETAMINOPHEN) PO ×3 (12:56→21:51)
[2018-05-15] MEDS: MEROPENEM INJ 1 GM in APPROPRIATE DILUENT 1 EA IV ×6 (03:53→20:25)
[2018-05-15] MEDS: KETOROLAC 30 MG/ML VIAL (J1885) IV ×4 (03:53→20:25)
[2018-05-15] MEDS: SODIUM CHLORIDE 0.9% INJ 10 ML SYR IV ×2 (05:09→18:28)
[2018-05-15] MEDS: HEPARIN SOD (PORCINE) 5000 UNITS/ML VIAL SC ×3 (05:10→20:25)
[2018-05-15 05:35] LABS: BASO # 0.1 10^3/uL (0.0-0.2); BASO % 0.3 % (0.0-1.0); EOS # 0.3 10^3/uL (0.0-0.50); EOS % 1.6 % (0.0-3.0); HEMATOCRIT 27.5 % (36.0-47.0); HEMOGLOBIN 8.9 g/dl (12.0-15.5); IMMATURE GRANULOCYTE % 4.1 % (0-3.0); LYMPH # 1.8 10^3/uL (1.5-6.5); LYMPH % 10.1 % (24.0-44.0); MEAN CORPUSCULAR HEMOGLOBIN 28.4 pg (27.0-33.0); MEAN CORPUSCULAR HGB CONC 32.4 g/dl (32.0-36.5); MEAN CORPUSCULAR VOLUME 87.9 fl (80.0-96.0); MONO # 1.5 10^3/uL (0.0-0.8); MONO % 8.1 % (0.0-5.0); NEUTROPHILS # 13.6 10^3/uL (1.8-7.7); NEUTROPHILS % 75.8 % (36.0-66.0); PLATELET COUNT, AUTOMATED 366 10^3/uL (150-450); RED BLOOD COUNT 3.13 10^6/uL (4.00-5.40); RED CELL DISTRIBUTION WIDTH 14.1 % (11.5-14.5); WHITE BLOOD COUNT 17.9 10^3/uL (4.0-10.0)
[2018-05-15 06:01] LABS: ALBUMIN/GLOBULIN RATIO 0.49 (1.00-1.93); ALKALINE PHOSPHATASE 204 U/L (45-117); ALT/SGPT 96 U/L (12-78); ANION GAP 6 MEQ/L (8-16); AST/SGOT 77 U/L (7-37); BILIRUBIN,TOTAL 0.5 MG/DL (0.2-1.0); BLOOD UREA NITROGEN 7 MG/DL (7-18); CALCIUM LEVEL 8.2 MG/DL (8.5-10.1); CARBON DIOXIDE LEVEL 31 MEQ/L (21-32); CHLORIDE LEVEL 101 MEQ/L (98-107); CREATININE FOR GFR 0.39 MG/DL (0.55-1.30); GLOMERULAR FILTRATION RATE > 60.0 (>60); GLUCOSE, FASTING 101 MG/DL (70-100); MAGNESIUM LEVEL 2.5 MG/DL (1.8-2.4); POTASSIUM SERUM 4.3 MEQ/L (3.5-5.1); SODIUM LEVEL 138 MEQ/L (136-145); TOTAL PROTEIN 6.1 GM/DL (6.4-8.2)
[2018-05-15] MEDS: PANTOPRAZOLE 40MG TAB (PROTONIX) PO (07:32)
[2018-05-15] MEDS: NORCO, ANEXSIA 5/325MG TABLET (HYDROcodone/ACETAMINOPHEN) PO ×3 (07:33→19:37)
[2018-05-16] MEDS: NORCO, ANEXSIA 5/325MG TABLET (HYDROcodone/ACETAMINOPHEN) PO ×2 (00:16→14:39)
[2018-05-16] MEDS: KETOROLAC 30 MG/ML VIAL (J1885) IV ×3 (03:45→14:36)
[2018-05-16] MEDS: MEROPENEM INJ 1 GM in APPROPRIATE DILUENT 1 EA IV ×2 (03:45→04:34)
[2018-05-16] MEDS: HEPARIN SOD (PORCINE) 5000 UNITS/ML VIAL SC ×2 (05:23→14:00)
[2018-05-16] MEDS: SODIUM CHLORIDE 0.9% INJ 10 ML SYR IV ×2 (05:24→14:37)
[2018-05-16 05:34] LABS: BASO % 0.3 % (0.0-1.0); EOS # 0.3 10^3/uL (0.0-0.50); EOS % 1.9 % (0.0-3.0); HEMATOCRIT 26.3 % (36.0-47.0); HEMOGLOBIN 8.6 g/dl (12.0-15.5); LYMPH % 15.7 % (24.0-44.0); MEAN CORPUSCULAR HEMOGLOBIN 28.6 pg (27.0-33.0); MEAN CORPUSCULAR HGB CONC 32.7 g/dl (32.0-36.5); MEAN CORPUSCULAR VOLUME 87.4 fl (80.0-96.0); MONO # 1.2 10^3/uL (0.0-0.8); MONO % 9.5 % (0.0-5.0); NEUTROPHILS % 69.6 % (36.0-66.0); PLATELET COUNT, AUTOMATED 388 10^3/uL (150-450); RED BLOOD COUNT 3.01 10^6/uL (4.00-5.40); RED CELL DISTRIBUTION WIDTH 13.9 % (11.5-14.5); WHITE BLOOD COUNT 12.9 10^3/uL (4.0-10.0)
[2018-05-16 06:20] LABS: ALBUMIN/GLOBULIN RATIO 0.51 (1.00-1.93); ALKALINE PHOSPHATASE 181 U/L (45-117); ALT/SGPT 76 U/L (12-78); ANION GAP 8 MEQ/L (8-16); AST/SGOT 55 U/L (7-37); BILIRUBIN,TOTAL 0.4 MG/DL (0.2-1.0); BLOOD UREA NITROGEN 7 MG/DL (7-18); CARBON DIOXIDE LEVEL 30 MEQ/L (21-32); CHLORIDE LEVEL 104 MEQ/L (98-107); CREATININE FOR GFR 0.37 MG/DL (0.55-1.30); GLOMERULAR FILTRATION RATE > 60.0 (>60); GLUCOSE, FASTING 87 MG/DL (70-100); MAGNESIUM LEVEL 2.5 MG/DL (1.8-2.4); SODIUM LEVEL 142 MEQ/L (136-145); TOTAL PROTEIN 5.9 GM/DL (6.4-8.2)
[2018-05-16] MEDS: PANTOPRAZOLE 40MG TAB (PROTONIX) PO (08:58)
== END 2018-05-16 19:45 | disposition home or self-care (01) | DRG 776 ==
LOC: M PCU 05-07 13:15 → M PED 05-16 13:50 → M PCU 05-07 16:07 → M ED 12:30 → M ED INP 15:24 → M PCU 18:38
PROC: 02HV33Z Insertion of Infusion Device into Superior Vena Cava, Percutaneous Approach (ICD-10-PCS; principal; 2018-05-09)
PROC: 3E0436Z Introduction of Nutritional Substance into Central Vein, Percutaneous Approach (ICD-10-PCS; 2018-05-10)
DX: O99.63 Diseases of the digestive system complicating the puerperium (principal); K85.91 Acute pancreatitis with uninfected necrosis, unspecified; Z91.013 Allergy to seafood; Z91.048 Other nonmedicinal substance allergy status; Z87.891 Personal history of nicotine dependence

== ENCOUNTER 2018-05-24 10:40 | Emergency (ER) | payer OTHER ==
[2018-05-24] MEDS: NS 1,000 ML IV (11:30)
[2018-05-24] MEDS: ONDANSETRON 4MG/2ML VIAL (J2405) IV (11:30)
[2018-05-24] MEDS: MORPHINE 2 MG/ML 1ML SYRINGE (J2270) IV (11:30)
[2018-05-24 11:33] LABS: BASO % 0.4 % (0.0-1.0); EOS # 0.1 10^3/uL (0.0-0.50); EOS % 1.7 % (0.0-3.0); HEMATOCRIT 32.5 % (36.0-47.0); HEMOGLOBIN 10.4 g/dl (12.0-15.5); IMMATURE GRANULOCYTE % 0.6 % (0-3.0); LYMPH % 27.8 % (24.0-44.0); MEAN CORPUSCULAR HEMOGLOBIN 28.6 pg (27.0-33.0); MEAN CORPUSCULAR VOLUME 89.3 fl (80.0-96.0); MONO # 0.5 10^3/uL (0.0-0.8); MONO % 6.8 % (0.0-5.0); NEUTROPHILS # 4.4 10^3/uL (1.8-7.7); NEUTROPHILS % 62.7 % (36.0-66.0); PLATELET COUNT, AUTOMATED 517 10^3/uL (150-450); RED BLOOD COUNT 3.64 10^6/uL (4.00-5.40); RED CELL DISTRIBUTION WIDTH 14.1 % (11.5-14.5); WHITE BLOOD COUNT 7.1 10^3/uL (4.0-10.0)
[2018-05-24 11:55] LABS: CONTROL LINE HCG INT CTR LINE PRESENT; HCG, SERUM QUALITATIVE NEGATIVE (NEGATIVE)
[2018-05-24 12:07] LABS: ALBUMIN 3.3 GM/DL (3.2-5.2); ALBUMIN/GLOBULIN RATIO 0.75 (1.00-1.93); ALKALINE PHOSPHATASE 135 U/L (45-117); ALT/SGPT 26 U/L (12-78); AMYLASE 68 U/L (25-115); ANION GAP 6 MEQ/L (8-16); AST/SGOT 14 U/L (7-37); BILIRUBIN,DIRECT 0.1 MG/DL (0.0-0.2); BILIRUBIN,TOTAL 0.4 MG/DL (0.2-1.0); BLOOD UREA NITROGEN 6 MG/DL (7-18); CALCIUM LEVEL 9.2 MG/DL (8.5-10.1); CARBON DIOXIDE LEVEL 30 MEQ/L (21-32); CHLORIDE LEVEL 107 MEQ/L (98-107); CREATININE FOR GFR 0.77 MG/DL (0.55-1.30); GLOMERULAR FILTRATION RATE > 60.0 (>60); GLUCOSE, FASTING 109 MG/DL (70-100); LIPASE 540 U/L (73-393); POTASSIUM SERUM 4.3 MEQ/L (3.5-5.1); SODIUM LEVEL 143 MEQ/L (136-145); TOTAL PROTEIN 7.7 GM/DL (6.4-8.2)
[2018-05-24 12:08] LABS: LACTIC ACID SEPSIS PROTOCOL 1.3 MMOL/L (0.4-2.0)
[2018-05-24] MEDS ORDERED: ISOVUE-370 76% 100ML VIAL (Q9967) As Ordered (12:42)
[2018-05-24 14:22] LABS: KETONE, URINE AUTO RFX NEGATIVE (NEGATIVE); LEUKOCYTE ESTERASE UR AUTO RFX NEGATIVE (NEGATIVE); NITRITE, URINE AUTO RFX NEGATIVE (NEGATIVE); RBC, URINE AUTO RFX 0 /HPF (0-3); SPECIFIC GRAVITY UR AUTO RFX 1.055 (1.002-1.035); SQUAM EPITHELIAL CELL UR AURFX 0 /HPF (0-6); WBC, URINE AUTO RFX 2 /HPF (0-3)
== END 2018-05-24 14:39 | disposition home or self-care (01) ==
LOC: M ED 10:40
DX: R10.10 Upper abdominal pain, unspecified (principal); R11.2 Nausea with vomiting, unspecified; Z87.19 Personal history of other diseases of the digestive system; Z91.018 Allergy to other foods
CPT/HCPCS: J2405

== ENCOUNTER → 2018-08-09 | Outpatient (CLI) | payer OTHER ==
[2018-08-09 13:26] LABS: HEMATOCRIT 38.7 % (36.0-47.0); HEMOGLOBIN 12.5 g/dl (12.0-15.5); MEAN CORPUSCULAR HEMOGLOBIN 27.7 pg (27.0-33.0); MEAN CORPUSCULAR HGB CONC 32.3 g/dl (32.0-36.5); MEAN CORPUSCULAR VOLUME 85.8 fl (80.0-96.0); PLATELET COUNT, AUTOMATED 256 10^3/uL (150-450); RED BLOOD COUNT 4.51 10^6/uL (4.00-5.40); RED CELL DISTRIBUTION WIDTH 13.1 % (11.5-14.5); WHITE BLOOD COUNT 6.8 10^3/uL (4.0-10.0)
[2018-08-09 13:39] LABS: ALBUMIN 3.9 GM/DL (3.2-5.2); ALBUMIN/GLOBULIN RATIO 1.08 (1.00-1.93); ALKALINE PHOSPHATASE 126 U/L (45-117); ALT/SGPT 39 U/L (12-78); ANION GAP 6 MEQ/L (8-16); AST/SGOT 21 U/L (7-37); BILIRUBIN,TOTAL 0.3 MG/DL (0.2-1.0); BLOOD UREA NITROGEN 9 MG/DL (7-18); C REACTIVE PROTEIN QUANTITATIV 0.49 MG/DL (0.00-0.30); CALCIUM LEVEL 9.4 MG/DL (8.5-10.1); CARBON DIOXIDE LEVEL 29 MEQ/L (21-32); CHLORIDE LEVEL 106 MEQ/L (98-107); CREATININE FOR GFR 0.66 MG/DL (0.55-1.30); GLOMERULAR FILTRATION RATE > 60.0 (>60); GLUCOSE, FASTING 89 MG/DL (70-100); LIPASE 94 U/L (73-393); POTASSIUM SERUM 4.3 MEQ/L (3.5-5.1); SODIUM LEVEL 141 MEQ/L (136-145); TOTAL PROTEIN 7.5 GM/DL (6.4-8.2)
== END ==
LOC: M LAB 12:01
DX: K85.11 Biliary acute pancreatitis with uninfected necrosis (principal)
CPT/HCPCS: 83690

== ENCOUNTER → 2018-08-27 | Outpatient (CLI) | payer OTHER ==
[~2018-08-27] MED LIST: GASTROGRAFIN SOLUTION 30ML (Q9963) As Ordered; ISOVUE-370 76% 100ML VIAL (Q9967) As Ordered
== END ==
LOC: M RAD 16:30
DX: K85.11 Biliary acute pancreatitis with uninfected necrosis (principal); K86.3 Pseudocyst of pancreas; K57.30 Diverticulosis of large intestine without perforation or abscess without bleeding
CPT/HCPCS: Q9963

== ENCOUNTER 2018-10-05 09:03 | Day surgery (SDC) | payer OTHER ==
[~2018-10-05 09:03] MED LIST changes: -GASTROGRAFIN SOLUTION 30ML (Q9963) As Ordered; -ISOVUE-370 76% 100ML VIAL (Q9967) As Ordered; +LR 1,000 ML IV
[2018-10-05 10:16] LABS: URINE PREG TEST NEGATIVE (NEGATIVE)
[2018-10-05 10:17] LABS: CONTROL LINE UCG INT CTR LINE PRESENT
[2018-10-05] MEDS: AMPICILLIN SOD/SULBACTAM SOD 3 GM in D5W MINI-BAG PLUS 100 ML IV (11:09)
[2018-10-05] MEDS ORDERED: KETOROLAC 60 MG/2 ML VIAL (J1885) As Ordered (11:10)
[2018-10-05] MEDS ORDERED: MIDAZOLAM INJ 2 MG/2 ML VIAL (J2250) As Ordered (11:10)
[2018-10-05] MEDS ORDERED: ONDANSETRON 4MG/2ML VIAL (J2405) As Ordered (11:10)
[2018-10-05] MEDS ORDERED: NEOSTIGMINE 10 MG/10 ML VIAL (J2710) As Ordered (11:10)
[2018-10-05] MEDS ORDERED: ROCURONIUM BROMIDE 50 MG/5 ML VIAL As Ordered ×2 (11:10→11:33)
[2018-10-05] MEDS ORDERED: LIDOCAINE 2% INJ 100 MG/5 ML SDV (FOR ANES.) As Ordered (11:10)
[2018-10-05] MEDS ORDERED: GLYCOPYRROLATE INJ 0.2 MG/ML 2 ML VIAL As Ordered (11:10)
[2018-10-05] MEDS ORDERED: dexameTHASONE 4 MG/ML 1ML VIAL (J1100) As Ordered (11:10)
[2018-10-05] MEDS ORDERED: PROPOFOL 200 MG/20 ML VIAL As Ordered (11:10)
[2018-10-05] MEDS ORDERED: fentaNYL 250 MCG/5 ML INJECTION (J3010) As Ordered (11:10)
[2018-10-05] MEDS ORDERED: METOCLOPRAMIDE INJ 10MG/2ML VIAL (J2765) As Ordered (11:10)
[2018-10-05] MEDS ORDERED: SUGAMMADEX SODIUM 500 MG/5 ML VIAL (BRIDION) As Ordered ×2 (12:16→13:41)
[2018-10-05] MEDS: LIDOCAINE 1% SDV INJ 30 ML VIAL As Ordered (12:18)
[2018-10-05] MEDS: BUPIVACAINE HCL 0.25% 30 ML VIAL As Ordered (12:18)
[2018-10-05] MEDS ORDERED: LR 1,000 ML IV (13:00)
[2018-10-05] MEDS ORDERED: ONDANSETRON 4MG/2ML VIAL (J2405) IV ×2 (13:00)
[2018-10-05] MEDS ORDERED: HYDROMORPHONE HCL 0.5 MG/ 0.5 ML SYRINGE (J1170 PER 1) IV (13:00)
[2018-10-05] MEDS ORDERED: NORCO, ANEXSIA 5/325MG TABLET (HYDROcodone/ACETAMINOPHEN) PO ×2 (13:00)
[2018-10-05] MEDS ORDERED: fentaNYL 100 MCG/2 ML INJECTION (J3010) IV (13:00)
[2018-10-05] MEDS ORDERED: KETOROLAC 30 MG/ML VIAL (J1885) IV (13:00)
[2018-10-05] MEDS: PERCOCET 5MG/325MG TAB PO ×2 (13:07→13:53)
[2018-10-05] MEDS ORDERED: fentaNYL 100 MCG/2 ML INJECTION (J3010) As Ordered (13:53)
== END 2018-10-05 15:15 | disposition home or self-care (01) ==
LOC: M SDC 09:03
DX: K81.9 Cholecystitis, unspecified (principal); K21.9 Gastro-esophageal reflux disease without esophagitis; F41.9 Anxiety disorder, unspecified; F32.9 Major depressive disorder, single episode, unspecified; Z79.899 Other long term (current) drug therapy
CPT/HCPCS: 47562

== ENCOUNTER 2019-10-29 23:50 | Outpatient (CLI) | payer OTHER ==
[~2019-10-29] VITALS: Ht 170.2 cm; Wt 115.8 kg
[~2019-10-29 23:50] MED LIST changes: +COLA100C5 PO; +HYDR-3715 PO; +IBUP-1114 PO; -LR 1,000 ML IV; +MAPA500T2 PO; +MIRE1IUD; +PANT40TA3 PO; +PERC5TAB12 PO; +PRENTAB9 PO; +ZOFR4TAB14 PO
[2019-10-30 00:18] VITALS: BP 128/76
[2019-10-30 00:44] LABS: APPEARANCE, URINE CLOUDY (CLEAR); BACTERIA, URINE AUTO NEGATIVE (NEGATIVE); BILIRUBIN, URINE AUTO NEGATIVE (NEGATIVE); BLOOD, URINE BLOOD 3+ (NEGATIVE); COLOR, URINE RED (YELLOW); GLUCOSE, URINE (UA) AUTO NEGATIVE (NEGATIVE); KETONE, URINE AUTO TRACE mg/dL (NEGATIVE); LEUKOCYTE ESTERASE, URINE AUTO NEGATIVE (NEGATIVE); NITRITE, URINE AUTO NEGATIVE (NEGATIVE); PROTEIN, URINE AUTO 2+ mg/dL (NEGATIVE); RBC, URINE AUTO TNTC /HPF (0-3); SPECIFIC GRAVITY URINE AUTO 1.013 (1.002-1.035); SQUAMOUS EPITHELIAL CELL UR AU 0 /HPF (0-6); UROBILINOGEN, URINE AUTO 0.2 mg/dL (0.0-2.0); WBC, URINE AUTO 1 /HPF (0-3)
[2019-10-30] MEDS ORDERED: LR 1,000 ML IV ONE (01:15)
[2019-10-30] MEDS ORDERED: PRENTAB9 PO (01:17)
[2019-10-30] MEDS ORDERED: ASPI81TA85 PO (01:17)
[2019-10-30] MEDS ORDERED: PIPERACILLIN/TAZOBACTAM SOD 3.375 GM in D5W MINI-BAG PLUS 50 ML IV STA (01:46)
[2019-10-30 01:51] LABS: BASO % 0.2 % (0.0-1.0); EOS # 0.1 10^3/uL (0.0-0.5); EOS % 0.6 % (0.0-3.0); HEMATOCRIT 35.1 % (36.0-47.0); HEMOGLOBIN 11.3 g/dl (12.0-15.5); LYMPH # 2.1 10^3/uL (1.5-5.0); LYMPH % 16.2 % (24.0-44.0); MEAN CORPUSCULAR HEMOGLOBIN 28.8 pg (27.0-33.0); MEAN CORPUSCULAR HGB CONC 32.2 g/dl (32.0-36.5); MEAN CORPUSCULAR VOLUME 89.3 fl (80.0-96.0); MONO # 0.7 10^3/uL (0.0-0.8); MONO % 5.5 % (0.0-5.0); NEUTROPHILS # 9.8 10^3/uL (1.5-8.5); PLATELET COUNT, AUTOMATED 173 10^3/uL (150-450); RED BLOOD COUNT 3.93 10^6/uL (4.00-5.40); WHITE BLOOD COUNT 12.7 10^3/uL (4.0-10.0)
[2019-10-30] MEDS: LR 1,000 ML IV SCH ×3 (02:05→04:49)
[2019-10-30 02:17] LABS: ALBUMIN 2.7 GM/DL (3.2-5.2); ALT/SGPT 32 U/L (12-78); BILIRUBIN,TOTAL 0.4 MG/DL (0.2-1.0); BLOOD UREA NITROGEN 6 MG/DL (7-18); CALCIUM LEVEL 8.6 MG/DL (8.5-10.1); CARBON DIOXIDE LEVEL 23 MEQ/L (21-32); CHLORIDE LEVEL 109 MEQ/L (98-107); CREATININE FOR GFR 0.48 MG/DL (0.55-1.30); GLOMERULAR FILTRATION RATE > 60.0 (>60); GLUCOSE, FASTING 90 MG/DL (70-100); POTASSIUM SERUM 3.8 MEQ/L (3.5-5.1); SODIUM LEVEL 142 MEQ/L (136-145); TOTAL PROTEIN 6.4 GM/DL (6.4-8.2)
[2019-10-30 03:19] VITALS: BP 129/74
--- NOTE | 2019-10-30 03:54 | REPVR ---
PROCEDURE INFORMATION: Exam: US Retroperitoneal Limited, Kidneys Exam date and time: 10/30/2019 2:22 AM Age: 24 years old Clinical indication: Abdominal pain; ; Additional info: Bilateral renal u/s to R/O pylo TECHNIQUE: Imaging protocol: Real-time ultrasound of the retroperitoneum with image documentation. Examination was focused on the kidneys. COMPARISON: [facility] US 2018-05-05 14:24 FINDINGS: Right kidney: 11.4 x 5.3 x 4.7 cm right kidney with an extrarenal pelvis. Left kidney: 12.6 x 6.1 x 5.6 cm normal left kidney. Bladder: Bladder 5.5 x 6.9 x 6.2 cm. Other findings: heart rate 144 beats per minute. IMPRESSION: No hydronephrosis. Electronically signed by: Xavier Santiago On 10/30/2019 03:53:41 AM
[2019-10-30 06:06] VITALS: BP 121/62
--- NOTE | 2019-10-30 18:44 | HPE ---
DATE OF ADMISSION: 10/29/2019 A 24-year-old 2, para 1, last menstrual period (LMP) 04/28/2019, estimated date of confinement (EDC) 03/16/2020, at 20 weeks and 2 days, comes in with lower abdominal pain, a U-shaped affair over her abdomen. No right or left quadrants. No flank pain. She has had it for about six hours and has had no relief. No vaginal bleeding or discharge. Her risk factors is her body mass index (BMI) is 40.9. She had a macrosomic infant last time with AGDM 1. She has AGDM 1 presently. She is an ex-smoker. She has a history of acute pancreatitis last delivery with cholestasis and common bile duct obstruction. She had a cholecystectomy and presently she is monitoring her blood sugars as she is in AGDM 1 at the present time. PAST HISTORY: In 2018 at 41 and 2, spontaneous vaginal delivery, AGDM 1, 10 pounds, 11 ounces. LABORATORY DATA: A+, hepatitis negative, RPR negative, rubella immune. Varicella nonimmune. Pap normal. Urine negative. Gonorrhea and Chlamydia are negative. One-hour glucose was 184. She did not do her three-hour GTT but has elected to do fingersticks four times a day and in reviewing her fingersticks, they are all within normal range. Blood pressure is 128/76, respirations are 18, pulse 88, temperature is 99.2. Her urine initially showed it was cloudy, bright red, pH of 6, specific gravity 10.13, 2+ glucose, trace of ketones, negative for everything else. She had 3+ blood. No bacteria. Symphysis fundus height was appropriate for 20 weeks. heart was present. No vaginal bleeding or discharge was noted. Our plan of management at the present time is to hydrate her up and try and clear the urine. We gave her a dose of Zosyn 3.75 mg. Urine was sent off for culture and sensitivity. She had a complete metabolic profile and IV antibiotics one dose every12 hours. Renal ultrasound was ordered. Chemistry was ordered. She was given approximately 4.5 liters of fluid and finally her urine cleared up. Her renal ultrasound was negative for stones, for stenosis, for pyelonephritis. Kidneys, right and left, were normal. She does have an extrarenal pelvis on the right side and normal left kidney. Bladder was of normal volume and size. heart rate was 144. Her chemistry: Kidney function was normal. Liver enzymes were normal. Electrolytes were within normal limits. Complete blood count (CBC): Her hemoglobin 11.3, hematocrit 35.1, white count was 12.7, platelets were 173. In summary, we have a 20 plus two-week of gestation with acute onset of hematuria, etiology unknown. Our plan of care is to hydrate her until clear, have a urology consult in the immediate future, and monitor her intake, output and her urine volume output on a regular basis. The patient expressed understanding of the plan of care. We will get a urology consult as soon as possible.
== END 2019-10-30 06:15 | disposition home or self-care (01) ==
LOC: M LDO 23:50
PROVIDERS: ATTEND Obstetrics & Gynecology
DX: O26.832 Pregnancy related renal disease, second trimester (principal); R31.9 Hematuria, unspecified; O99.212 Obesity complicating pregnancy, second trimester; E66.9 Obesity, unspecified; O24.419 Gestational diabetes mellitus in pregnancy, unspecified control; Z3A.20 20 weeks gestation of pregnancy; Z68.41 Body mass index [BMI] 40.0-44.9, adult
CPT/HCPCS: 36415; 76775; 80053; 81001; 85025; 87088; 87186; G0378; G0463; J2543

== ENCOUNTER → 2019-11-12 | Outpatient (REF) | payer OTHER ==
[~2019-11-12] MED LIST changes: +ASPI81TA85 PO
[2019-11-12 18:31] LABS: AMORPHOUS SEDIMENT SMALL (NEGATIVE); APPEARANCE, URINE CLOUDY (CLEAR); BACTERIA, URINE AUTO 1+ (NEGATIVE); BILIRUBIN, URINE AUTO NEGATIVE (NEGATIVE); BLOOD, URINE BLOOD NEGATIVE (NEGATIVE); COLOR, URINE YELLOW (YELLOW); GLUCOSE, URINE (UA) AUTO NEGATIVE (NEGATIVE); KETONE, URINE AUTO 1+ mg/dL (NEGATIVE); LEUKOCYTE ESTERASE, URINE AUTO 3+ (NEGATIVE); MUCUS, URINE SMALL (NEGATIVE); NITRITE, URINE AUTO NEGATIVE (NEGATIVE); PROTEIN, URINE AUTO 1+ mg/dL (NEGATIVE); RBC, URINE AUTO 22 /HPF (0-3); RENAL EPITHELIAL CELLS 1 /HPF; SPECIFIC GRAVITY URINE AUTO 1.019 (1.002-1.035); SQUAMOUS EPITHELIAL CELL UR AU 0 /HPF (0-6); UROBILINOGEN, URINE AUTO 0.2 mg/dL (0.0-2.0); WBC, URINE AUTO TNTC /HPF (0-3)
== END ==
LOC: M SMT 16:56
PROVIDERS: ATTEND Nurse Practitioner Women's Health
DX: N39.0 Urinary tract infection, site not specified (principal)
CPT/HCPCS: 81001; 87088; 87186; G0463

== ENCOUNTER → 2019-12-05 | Outpatient (REF) | payer OTHER ==
[2019-12-05 16:48] LABS: HEMATOCRIT 36.3 % (36.0-47.0); MEAN CORPUSCULAR HEMOGLOBIN 29.9 pg (27.0-33.0); MEAN CORPUSCULAR HGB CONC 33.1 g/dl (32.0-36.5); MEAN CORPUSCULAR VOLUME 90.5 fl (80.0-96.0); PLATELET COUNT, AUTOMATED 193 10^3/uL (150-450); RED BLOOD COUNT 4.01 10^6/uL (4.00-5.40); WHITE BLOOD COUNT 11.3 10^3/uL (4.0-10.0)
== END ==
LOC: M LAB REF 16:16
PROVIDERS: ATTEND Obstetrics & Gynecology
DX: Z34.82 Encounter for supervision of other normal pregnancy, second trimester (principal)

== ENCOUNTER → 2019-12-19 | Outpatient (REF) | payer OTHER ==
[2019-12-19 17:08] LABS: HEMOGLOBIN A1c 5.2 %
== END ==
LOC: M LAB REF 16:31
PROVIDERS: ATTEND Obstetrics & Gynecology
DX: Z36.89 Encounter for other specified antenatal screening (principal)

== ENCOUNTER → 2020-02-05 | Outpatient (REF) | payer OTHER | LOC: M LAB REF 16:40 | PROVIDERS: ATTEND Obstetrics & Gynecology | DX: Z34.83 Encounter for supervision of other normal pregnancy, third trimester (principal); Z3A.00 Weeks of gestation of pregnancy not specified ==

== ENCOUNTER 2020-02-19 11:42 | Outpatient (CLI) | payer OTHER ==
[~2020-02-19] VITALS: Ht 170.2 cm; Wt 118.9 kg
[2020-02-19 12:07] VITALS: BP 118/74
[2020-02-19] MEDS ORDERED: LR 1,000 ML IV ONE (12:45)
[2020-02-19] MEDS ORDERED: PERCOCET 5MG/325MG TAB PO ONE (12:45)
[2020-02-19] MEDS ORDERED: LR 1,000 ML IV SCH (12:45)
[2020-02-19] MEDS ORDERED: MAPA500T2 PO (12:55)
[2020-02-19] MEDS ORDERED: GLYB5TA PO (12:55)
[2020-02-19] MEDS ORDERED: OMEGCAP9 PO (12:55)
[2020-02-19] MEDS ORDERED: MACR100C43 PO (12:55)
[2020-02-19] MEDS ORDERED: BIOT1CAP2 PO (12:55)
[2020-02-19 13:05] LABS: HEMATOCRIT 34.3 % (36.0-47.0); HEMOGLOBIN 11.4 g/dl (12.0-15.5); MEAN CORPUSCULAR HEMOGLOBIN 29.7 pg (27.0-33.0); MEAN CORPUSCULAR HGB CONC 33.2 g/dl (32.0-36.5); MEAN CORPUSCULAR VOLUME 89.3 fl (80.0-96.0); PLATELET COUNT, AUTOMATED 193 10^3/uL (150-450); RED BLOOD COUNT 3.84 10^6/uL (4.00-5.40); WHITE BLOOD COUNT 9.2 10^3/uL (4.0-10.0)
[2020-02-19 13:35] VITALS: BP 119/72
[2020-02-19 13:37] LABS: ALBUMIN 2.8 GM/DL (3.2-5.2); ALT/SGPT 24 U/L (12-78); BILIRUBIN,TOTAL 0.5 MG/DL (0.2-1.0); BLOOD UREA NITROGEN 5 MG/DL (7-18); CALCIUM LEVEL 9.2 MG/DL (8.5-10.1); CARBON DIOXIDE LEVEL 24 MEQ/L (21-32); CHLORIDE LEVEL 106 MEQ/L (98-107); CREATININE FOR GFR 0.56 MG/DL (0.55-1.30); GLOMERULAR FILTRATION RATE > 60.0 (>60); GLUCOSE, FASTING 107 MG/DL (70-100); POTASSIUM SERUM 3.9 MEQ/L (3.5-5.1); SODIUM LEVEL 137 MEQ/L (136-145); TOTAL PROTEIN 6.7 GM/DL (6.4-8.2)
[2020-02-19 15:05] VITALS: BP 120/70
--- NOTE | 2020-02-19 15:58 | REP ---
OB ULTRASOUND BIOPHYSICAL PROFILE: Real-time ultrasound evaluation of gravid uterus performed. There is a single living intrauterine gestation. The estimated gestational age is reportedly 36 weeks 6 days, EDC 03/12/2020. heart rate is 160 beats per minute. Amniotic fluid appears polyhydramnios. GLORIA is 28.7, normal range is 7.5-24.5. Biophysical profile score is 8/8. S/D ratio 2.54 within normal range of 1.64 to 2.64. RI 0.61 is within normal range of 0.59 to 0.75. position is vertex. Placenta is anterior and grade 1 with no previa or abruption. Electronically Signed by Cristofer Gray MD 02/19/2020 04:25 P
== END 2020-02-19 15:49 | disposition home or self-care (01) ==
LOC: M LDO 11:42
PROVIDERS: ATTEND Obstetrics & Gynecology
DX: O26.82 Pregnancy related peripheral neuritis (principal); O36.831 Maternal care for abnormalities of the fetal heart rate or rhythm, first trimester; Z3A.36 36 weeks gestation of pregnancy
CPT/HCPCS: 36415; 59025; 76815; 76819; 76820; 80053; 85027; 96360; 96361; G0378; G0463